=== PATIENT | female | born 1975 | race Caucasian/White ===

== ENCOUNTER → 2016-09-19 | Outpatient (CLI) | payer OTHER | LOC: FIMAGING 12:11 | PROVIDERS: ATTEND Internal Medicine | DX: Z12.31 Encounter for screening mammogram for malignant neoplasm of breast (principal); Z80.3 Family history of malignant neoplasm of breast | CPT/HCPCS: G0202 ==

== ENCOUNTER 2016-09-23 08:51 | Emergency (ER) | payer OTHER ==
[2016-09-23 09:05] VITALS: BP 99/61; RESP 18; TEMP 98.1; O2SAT 98
[2016-09-23] MEDS ORDERED: OXYCODONE/APAP 5/325 TAB PO ONE (09:07)
[2016-09-23] MEDS ORDERED: IBUPROFEN 200 MG TAB PO ONE (09:09)
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
[2016-09-23 09:35] VITALS: PULSE 62
== END 2016-09-23 09:30 | disposition home or self-care (01) ==
LOC: CED 08:51
PROC: 2W28X4Z Dressing of Right Upper Extremity using Bandage (ICD-10-PCS; principal; 2016-09-23)
DX: T23.201A Burn of second degree of right hand, unspecified site, initial encounter (principal); T31.0 Burns involving less than 10% of body surface; Z87.891 Personal history of nicotine dependence; X15.0XXA Contact with hot stove (kitchen), initial encounter

== ENCOUNTER → 2017-10-23 | Outpatient (CLI) | payer OTHER | LOC: FIMAGING 09:33 | PROVIDERS: ATTEND Internal Medicine | DX: Z12.31 Encounter for screening mammogram for malignant neoplasm of breast (principal); Z80.3 Family history of malignant neoplasm of breast ==

== ENCOUNTER → 2017-10-31 | Outpatient (CLI) | payer OTHER | LOC: FIMAGING 13:08 | PROVIDERS: ATTEND Internal Medicine | DX: R92.8 Other abnormal and inconclusive findings on diagnostic imaging of breast (principal) ==